=== PATIENT | male | born 1975 | race Caucasian/White ===

== ENCOUNTER 2016-12-25 04:23 | Emergency (ER) | payer SELFPAY ==
[~2016-12-25] VITALS: Ht 185.4 cm; Wt 100.2 kg
[2016-12-25 04:30] VITALS: BP 167/98
== END 2016-12-25 05:32 | disposition home or self-care (01) ==
LOC: ED 04:23
DX: S51.811A Laceration without foreign body of right forearm, initial encounter (principal); G89.29 Other chronic pain; M25.561 Pain in right knee; Z88.0 Allergy status to penicillin; Z98.890 Other specified postprocedural states; W17.89XA Other fall from one level to another, initial encounter; Y92.89 Other specified places as the place of occurrence of the external cause; Y99.8 Other external cause status; Y93.89 Activity, other specified
CPT/HCPCS: 90715

== ENCOUNTER 2018-07-11 17:39 | Emergency (ER) | payer SELFPAY ==
[~2018-07-11] VITALS: Ht 185.4 cm; Wt 100.7 kg
[2018-07-11 17:58] VITALS: BP 147/96; Ht 185.4 cm; Wt 100.7 kg
[2018-07-12] MEDS ORDERED: CLINDAMYCIN HC300 MG PO (17:43)
== END 2018-07-11 20:12 | disposition home or self-care (01) ==
LOC: ED 17:39
DX: S63.602A Unspecified sprain of left thumb, initial encounter (principal); Z88.1 Allergy status to other antibiotic agents; Z86.19 Personal history of other infectious and parasitic diseases; Z98.890 Other specified postprocedural states; X58.XXXA Exposure to other specified factors, initial encounter; Y93.89 Activity, other specified; Y92.89 Other specified places as the place of occurrence of the external cause; Y99.8 Other external cause status
CPT/HCPCS: J3010

== ENCOUNTER 2018-07-12 12:26 | Inpatient (IN) | payer MEDICAID ==
[~2018-07-12] VITALS: Ht 185.4 cm; Wt 103.0 kg
[2018-07-12 12:49] VITALS: Ht 185.4 cm; Wt 103.0 kg
[2018-07-12 15:07] LABS: BASOPHIL % 0.4 % (0-2); PLATELET COUNT 165 x10^3mcL (130-400); RED CELL DISTRIBUTION WIDTH 13.1 % (11.5-14.5)
[2018-07-12 15:13] LABS: CALCIUM 8.7 mg/dL (8.5-10.1); CARBON DIOXIDE 31.2 mmol/L (21-32); CHLORIDE SERUM 100 mmol/L (98-107); GFR1 > 60 mL/min; GLUCOSE SERUM 90 mg/dL (74-106); POTASSIUM SERUM 4.3 mmol/L (3.5-5.1); SODIUM SERUM 136 mmol/L (136-145)
[2018-07-12 15:18] LABS: ALBUMIN 3.7 g/dL (3.4-5.0); ALKALINE PHOSPHATASE 68 U/L (46-116); ALT/SGPT 103 U/L (16-63); AST/SGOT 66 U/L (15-37); BILIRUBIN TOTAL 0.84 mg/dL (0.20-1.00); TOTAL PROTEIN, SERUM 7.6 g/dL (6.4-8.2)
[2018-07-12 16:40] LABS: microscopic required? NO
[2018-07-12 16:55] LABS: UA SPECIFIC GRAVITY 1.025 (1.005-1.035); urine erythrocyte NEGATIVE (NEGATIVE)
[2018-07-12 17:01] LABS: CHOLESTEROL/HDL RATIO 2.4; MAGNESIUM 1.8 mg/dL (1.8-2.4); PHOSPHOROUS 2.7 mg/dL (2.5-4.9)
[2018-07-12 17:08] LABS: AMPHETAMINE QUAL UR POSITIVE (See below)
[2018-07-12] MEDS ORDERED: CLINDAMYCIN HC300 MG PO (17:43)
[2018-07-12 18:40] VITALS: BP 140/70
[2018-07-12 19:10] VITALS: BP 139/77
[2018-07-12 19:57] VITALS: BP 130/86
[2018-07-12 20:34] VITALS: BP 135/70
[2018-07-13 05:23] VITALS: BP 137/84
[2018-07-13 06:56] LABS: BASOPHIL % 0.4 % (0-2); PLATELET COUNT 158 x10^3mcL (130-400); RED CELL DISTRIBUTION WIDTH 13.4 % (11.5-14.5)
[2018-07-13 07:16] LABS: CALCIUM 8.2 mg/dL (8.5-10.1); CHLORIDE SERUM 97 mmol/L (98-107); CREATININE SERUM 0.9 mg/dL (0.7-1.3); GFR1 > 60 mL/min; GLUCOSE SERUM 94 mg/dL (74-106); MAGNESIUM 1.7 mg/dL (1.8-2.4); PHOSPHOROUS 2.2 mg/dL (2.5-4.9); POTASSIUM SERUM 4.1 mmol/L (3.5-5.1); SODIUM SERUM 131 mmol/L (136-145)
[2018-07-13 08:00] VITALS: BP 135/70
[2018-07-13 17:00] VITALS: BP 128/92
[2018-07-13 20:40] VITALS: BP 150/87
[2018-07-14 06:16] VITALS: BP 144/81
[2018-07-14 06:26] LABS: BASOPHIL % 0.4 % (0-2); PLATELET COUNT 171 x10^3mcL (130-400); RED CELL DISTRIBUTION WIDTH 13.3 % (11.5-14.5)
[2018-07-14 06:58] LABS: CALCIUM 8.5 mg/dL (8.5-10.1); CARBON DIOXIDE 26.2 mmol/L (21-32); CHLORIDE SERUM 99 mmol/L (98-107); CREATININE SERUM 0.9 mg/dL (0.7-1.3); GFR1 > 60 mL/min; GLUCOSE SERUM 108 mg/dL (74-106); PHOSPHOROUS 3.1 mg/dL (2.5-4.9); SODIUM SERUM 134 mmol/L (136-145)
[2018-07-14 08:31] VITALS: BP 128/77
[2018-07-14 12:36] VITALS: BP 112/76
[2018-07-14 16:29] VITALS: BP 144/92
[2018-07-14 20:50] VITALS: BP 158/101
[2018-07-14 22:56] VITALS: BP 144/83
[2018-07-15 05:50] VITALS: BP 144/97
[2018-07-15 06:27] LABS: BASOPHIL % 0.5 % (0-2); PLATELET COUNT 195 x10^3mcL (130-400); RED CELL DISTRIBUTION WIDTH 13.2 % (11.5-14.5)
[2018-07-15 06:35] LABS: CALCIUM 8.4 mg/dL (8.5-10.1); CARBON DIOXIDE 25.5 mmol/L (21-32); CHLORIDE SERUM 100 mmol/L (98-107); CREATININE SERUM 0.9 mg/dL (0.7-1.3); GFR1 > 60 mL/min; GLUCOSE SERUM 87 mg/dL (74-106); MAGNESIUM 2.1 mg/dL (1.8-2.4); PHOSPHOROUS 3.2 mg/dL (2.5-4.9); POTASSIUM SERUM 4.1 mmol/L (3.5-5.1); SODIUM SERUM 132 mmol/L (136-145)
[2018-07-15 08:07] VITALS: BP 150/96
[2018-07-15] MEDS ORDERED: DOXYCYCLINE HY100 MG PO (10:29)
[2018-07-15] MEDS ORDERED: CLEOCIN HCL300 MG PO (10:29)
[2018-07-15] MEDS ORDERED: NORCO1 TA2 PO (10:31)
[2018-07-15 12:10] VITALS: BP 142/86
[2018-07-15 12:59] VITALS: BP 142/86
== END 2018-07-15 13:35 | disposition home or self-care (01) | DRG 720 ==
LOC: ED 12:26 → MU 16:03
PROVIDERS: Emergency Medicine; General Practice; ADMIT Internal Medicine
DX: A41.9 Sepsis, unspecified organism (principal); B18.2 Chronic viral hepatitis C; L03.114 Cellulitis of left upper limb; S60.512A Abrasion of left hand, initial encounter; Z68.29 Body mass index [BMI] 29.0-29.9, adult; X58.XXXA Exposure to other specified factors, initial encounter; Y93.H2 Activity, gardening and landscaping; Y92.89 Other specified places as the place of occurrence of the external cause
CPT/HCPCS: 83880; J2270; J2405; J3370; J3490; J7030; J7050

== ENCOUNTER 2019-01-06 09:55 | Emergency (ER) | payer OTHER ==
[~2019-01-06] VITALS: Ht 185.4 cm; Wt 109.3 kg
[~2019-01-06 09:55] MED LIST: CLEOCIN HCL300 MG PO; CLINDAMYCIN HC300 MG PO; DOXYCYCLINE HY100 MG PO; NORCO1 TA2 PO
[2019-01-06 09:58] VITALS: Ht 185.4 cm; Wt 109.3 kg
[2019-01-06 11:10] LABS: BASOPHIL % 0.4 % (0-2); PLATELET COUNT 196 x10^3mcL (130-400); RED CELL DISTRIBUTION WIDTH 13.6 % (11.5-14.5)
[2019-01-06 11:22] LABS: CALCIUM 8.7 mg/dL (8.5-10.1); CARBON DIOXIDE 31.1 mmol/L (21-32); CHLORIDE SERUM 104 mmol/L (98-107); CREATININE SERUM 1.3 mg/dL (0.7-1.3); GFR1 > 60 mL/min; GLUCOSE SERUM 109 mg/dL (74-106); SODIUM SERUM 140 mmol/L (136-145)
[2019-01-06 11:26] LABS: ALBUMIN 3.8 g/dL (3.4-5.0); ALKALINE PHOSPHATASE 72 U/L (46-116); ALT/SGPT 119 U/L (16-63); AST/SGOT 54 U/L (15-37); BILIRUBIN TOTAL 0.34 mg/dL (0.20-1.00); MAGNESIUM 2.2 mg/dL (1.8-2.4); TOTAL PROTEIN, SERUM 8.2 g/dL (6.4-8.2)
[2019-01-06 12:56] LABS: AMPHETAMINE QUAL UR NONE DETECTED (See below)
[2019-01-06 14:08] VITALS: BP 120/64
== END 2019-01-06 14:00 | disposition home or self-care (01) ==
LOC: ED 09:55
PROVIDERS: Emergency Medicine
DX: R55 Syncope and collapse (principal); G47.00 Insomnia, unspecified; Z86.19 Personal history of other infectious and parasitic diseases; Z88.1 Allergy status to other antibiotic agents; Z98.890 Other specified postprocedural states
CPT/HCPCS: 36415; G0480

== ENCOUNTER 2019-01-12 03:49 | Emergency (ER) | payer OTHER ==
[~2019-01-12] VITALS: Ht 185.4 cm; Wt 104.9 kg
[2019-01-12 03:54] VITALS: Ht 185.4 cm; Wt 104.9 kg
[2019-01-12 04:18] VITALS: BP 128/88
== END 2019-01-12 04:18 | disposition home or self-care (01) ==
LOC: ED 03:49
DX: L60.0 Ingrowing nail (principal); Z88.0 Allergy status to penicillin
CPT/HCPCS: J2001

== ENCOUNTER 2019-05-10 16:00 | Emergency (ER) | payer OTHER ==
[~2019-05-10] VITALS: Ht 185.4 cm; Wt 101.6 kg
[2019-05-10 16:08] VITALS: Ht 185.4 cm; Wt 101.6 kg
[2019-05-10 16:53] LABS: BASOPHIL % 0.4 % (0-2); CALCIUM 8.7 mg/dL (8.5-10.1); CARBON DIOXIDE 31.2 mmol/L (21-32); CHLORIDE SERUM 102 mmol/L (98-107); CREATININE SERUM 1.2 mg/dL (0.7-1.3); GFR1 > 60 mL/min; GLUCOSE SERUM 101 mg/dL (74-106); PLATELET COUNT 208 x10^3mcL (130-400); POTASSIUM SERUM 3.6 mmol/L (3.5-5.1); RED CELL DISTRIBUTION WIDTH 13.7 % (11.5-14.5); SODIUM SERUM 138 mmol/L (136-145)
[2019-05-10 16:58] LABS: ALBUMIN 3.8 g/dL (3.4-5.0); ALKALINE PHOSPHATASE 71 U/L (46-116); ALT/SGPT 83 U/L (16-63); AST/SGOT 42 U/L (15-37); BILIRUBIN TOTAL 0.3 mg/dL (0.20-1.00); TOTAL PROTEIN, SERUM 7.4 g/dL (6.4-8.2)
[2019-05-10 20:28] VITALS: BP 127/72
== END 2019-05-10 20:28 | disposition home or self-care (01) ==
LOC: ED 16:00
PROVIDERS: Emergency Medicine
DX: T40.1X1A Poisoning by heroin, accidental (unintentional), initial encounter (principal); Z98.890 Other specified postprocedural states; Z88.1 Allergy status to other antibiotic agents; Y92.89 Other specified places as the place of occurrence of the external cause
CPT/HCPCS: 36415; G0480

== ENCOUNTER 2019-07-12 17:58 | Emergency (ER) | payer SELFPAY ==
[~2019-07-12] VITALS: Ht 185.4 cm; Wt 104.3 kg
[2019-07-12 18:11] VITALS: Ht 185.4 cm; Wt 104.3 kg
[2019-07-12 18:43] LABS: BASOPHIL % 0.5 % (0-2); PLATELET COUNT 173 x10^3mcL (130-400); RED CELL DISTRIBUTION WIDTH 13.4 % (11.5-14.5)
[2019-07-12 19:11] LABS: CALCIUM 7.8 mg/dL (8.5-10.1); CARBON DIOXIDE 26.7 mmol/L (21-32); CREATININE SERUM 1.4 mg/dL (0.7-1.3); POTASSIUM SERUM 3.8 mmol/L (3.5-5.1)
[2019-07-12 19:15] LABS: BILIRUBIN TOTAL 0.3 mg/dL (0.20-1.00); TOTAL PROTEIN, SERUM 6.4 g/dL (6.4-8.2)
[2019-07-12 19:19] LABS: ALBUMIN 3.3 g/dL (3.4-5.0)
[2019-07-12 19:47] VITALS: BP 109/49
== END 2019-07-12 19:47 | disposition home or self-care (01) ==
LOC: ED 17:58
PROVIDERS: Emergency Medicine
DX: R56.9 Unspecified convulsions (principal); E86.0 Dehydration; S00.31XA Abrasion of nose, initial encounter; Z88.1 Allergy status to other antibiotic agents; Z98.890 Other specified postprocedural states; X58.XXXA Exposure to other specified factors, initial encounter; Y93.89 Activity, other specified; Y92.89 Other specified places as the place of occurrence of the external cause; Y99.8 Other external cause status
CPT/HCPCS: 36415; J7030

== ENCOUNTER 2020-04-30 10:29 | Emergency (ER) | payer OTHER ==
[~2020-04-30] VITALS: Ht 185.4 cm; Wt 103.4 kg
[2020-04-30 10:33] VITALS: BP 114/71; Ht 185.4 cm; Wt 103.4 kg
== END 2020-04-30 12:44 | disposition left against medical advice (07) ==
LOC: ED 10:29
DX: Z53.21 Procedure and treatment not carried out due to patient leaving prior to being seen by health care provider (principal)